=== PATIENT | female | born 1990 | race Caucasian/White ===

== ENCOUNTER 2022-11-30 01:05 | Inpatient (IN) | payer BC, MEDICAID, SELFPAY ==
[2022-11-30] VITALS (8 sets, daily range): BP systolic 94–129; BP diastolic 53–84; PULSE 80–102; RESP 15–18; TEMP 36.6; O2SAT 90–100; BMI 30.3
[2022-11-30] MEDS: Haloperidol Lactate 5 MG/ML VIAL IM (01:30)
[2022-11-30] MEDS: LORazepam 2 MG/ML VIAL IM (01:30)
[2022-11-30] MEDS: diphenhydrAMINE HCL 50 MG/ML VIAL IM (01:30)
--- NOTE | 2022-11-30 01:31 | ED.PSYCH ---
HPI - Psych General Chief Complaint: Psychiatric Symptoms Stated Complaint: Section 12 Time Seen by Provider: 11/30/22 01:21 Source: EMS Mode of arrival: EMS Limitations: altered mental status History of Present Illness HPI Narrative: Patient comes to the emergency room via EMS. Patient is on a Section 12. Patient is paranoid, has been walking in her neighborhood knocking on strangers doors, per EMS patient accused a random stranger that she was her boyfriend. Patient paranoid, states that she is under the morning possession, responding to internal stimuli. Related Data Allergies Allergy/AdvReac Type Severity Reaction Status Date / Time No Known Allergies Allergy Unverified 01/23/20 17:57 [No Known Allergies*] Review of Systems Review of Systems: Yes Unobtainable due to mental condition [facility] Past Medical History Medical History (Updated 11/30/22 @ 01:36 by Cierra Tan MD) Paranoid schizophrenia Physical Exam Vital Signs: Vital Signs: BMI result Body Mass Index 30.3 Const: Other: Appearance: Alert. Pacing around, difficult to redirect Eyes: Pupils equal, round and reactive to light. ENT: Pharynx normal. Neck: Normal inspection. Neck supple. No lymph nodes noted. No crepitus CVS: Normal heart rate and rhythm. Pulses normal. Normal S1 and S2 Respiratory: No respiratory distress. Breath sounds normal. No Wheezing. No rales Abdomen: Soft and nontender. No rigidity. No distention. Skin: Skin warm and dry. Normal skin color. Normal skin turgor. Extremities: No lower extremity edema. No Lacerations. No Rash Neuro: Oriented X 3. No motor deficit. No sensory deficit. Moving all extremities. No slurred speech. CN 2 through 12 grossly intact Psych: Anxious, difficult to redirect, pressured speech, paranoid Course Course Course Narrative: -unable to redirect the patient, patient received IM Benadryl 50 mg, Haldol 5 mg, 2 mg of lorazepam -all of patient's labs pending -care team consult pending -physician of sedation started at 01:30 Sign-out given to Dr. Jovel Medical Decision Making Differential Diagnosis Differential Diagnoses: The differential diagnosis associated with the presentation includes (Paranoid schizophrenia, alcohol intoxication, substance abuse) Admission/Observation Consideration of admission/observation: Escalation of care including admission/observation considered (Patient had to be chemically restrained, patient will be under observation until behavioral health/care team can talk to her and make a plan) Critical Care Time Critical Care Time Critical Care Time: Yes Total Critical Care Time: 30 Attestation: I have personally provided critical care time. Time includes review of lab data, radiology results, discussion with consultants, and monitoring for potential decompensation. Intervention performed as documented. Discharge Plan Discharge Clinical Impression: Paranoid schizophrenia Patient Disposition: Still a Patient
[2022-11-30 02:12] LABS: MANUAL DIFF FLAG NO
[2022-11-30 02:13] LABS: Basophils Percent Auto 0.2 % (0-2); Eosinophils Absolute Auto 0.1 X10*3/uL (0.0-0.4); Eosinophils Percent Auto 0.6 % (0-4); Hematocrit 35.4 % (37.0-47.0); Hemoglobin 11.6 g/dl (12.0-16.0); Imm Gran Abs Auto 0.03 X10*3/uL (0.00-0.03); Imm Gran Pct Auto 0.3 % (0.0-0.4); Lymphocytes Absolute Auto 2.6 X10*3/uL (1.2-4.9); Lymphocytes Percent Auto 27.9 % (20-40); Mean Corpuscular HGB Conc 32.8 g/dl (31.0-35.0); Mean Corpuscular Hemoglobin 29.7 pg (27.0-33.0); Mean Corpuscular Volume 90.5 fL (80.0-98.0); Mean Platelet Volume 9.7 fL (9.4-12.3); Monocytes Absolute Auto 0.8 X10*3/uL (0.1-1.2); Monocytes Percent Auto 8.6 % (2-11); Neutrophils Absolute Auto 5.9 x10*3/uL (2.0-8.3); Neutrophils Percent Auto 62.4 % (45-73); Platelet Count 249 X10*3/uL (160-400); Red Blood Count 3.91 X10*6/uL (4.20-5.50); White Blood Count 9.4 X10*3/uL (4.8-10.8)
[2022-11-30 02:34] LABS: Alanine Aminotransferase 12 U/L (0-31); Albumin Level 4.2 g/dL (3.5-5.0); Alkaline Phosphatase 52 U/L (39-117); Anion Gap 13 (12-20); Aspartate Amino Transferase 25 U/L (5-31); Bilirubin Direct 0.3 mg/dL (0.0-0.5); Bilirubin Total 0.9 mg/dL (0.0-1.0); Blood Urea Nitrogen 12 mg/dL (9-16); Carbon Dioxide 22 mmol/L (22-29); Chloride 106 mmol/L (96-108); Creatinine Clr Calc Pharmacy 91.1; Estimated Glomerular Filt Rate > 60; Ethanol < 10 mg/dL; Glucose Random 83 mg/dL (60-115); Potassium 3.1 mmol/L (3.3-5.1); Sodium 138 mmol/L (135-145); Total Protein 6.9 g/dL (6.5-8.0)
--- NOTE | 2022-11-30 05:11 | PC.NURSE ---
Patient at the time of arrival was paranoid, delusional, tangential, disorganized, uncooperative with changeover process, loud and disruptive, and resistive with direction. Provider ordered Ativan 2 mg IM, Haldol 5 mg IM, and Benadryl 50 mg Im administered as ordered at 0130 with support from security. Patient agreed to lab draws and resulted however unable to provide us urine sample at this time, patient had been sleeping since 0200, care consult ordered for paranoia, pending evaluation in the morning, med rec completed/pending provider's approval, VSS, behavior unpredictable, will continue to monitor.
--- NOTE | 2022-11-30 09:45 | PC.NURSE ---
Woke Pt. Obtained Urine. Enc. Breakfast. Pt is anxious to take care of things with the police . Enc pt to take her time and explained the process.
[2022-11-30 10:05] LABS: Appearance Urine Cloudy; Color Urine Yellow; Glucose Urine UA Negative (Negative); Leukocyte Esterase Urine Moderate (2+) (Negative); Nitrite Urine Negative (Negative); Specific Gravity - Urine >= 1.030 (1.005-1.025); UMIC TRIGGER UACC YES; Urine Blood Negative (Negative); Urine Ketones 15 mg/dL (Negative); Urine Protein Trace mg/dL (Neg-Trace)
[2022-11-30 10:06] LABS: UPreg QC Valid YES; Urine Pregnancy NEGATIVE (NEGATIVE)
[2022-11-30 10:07] LABS: Bacteria Urine 2+ (None Seen); RBC Urine 0-2 /HPF (0-2); Squamous Epithelial Cell Urine >20 /HPF (0-2); UACC Culture Trigger YES; WBC Urine >50 /HPF (0-5)
[2022-11-30 10:08] LABS: Amphetamine Screen Urine Not Detected (Not Detect); Barbiturates, Urine Not Detected (Not Detect); Benzodiazepines Screen Urine Not Detected (Not Detect); Cannabinoid Screen Urine Not Detected (Not Detect); Cocaine Screen Urine Not Detected (Not Detect); Fentanyl, urine Not Detected (Not Detect); Opiate Screen Urine Not Detected (Not Detect); Phencyclidine Screen Urine Not Detected (Not Detect)
[2022-11-30 12:09] LABS: COVID-19 Test Negative (Negative); IDNOW Serial# BCCEAD1C
[2022-11-30 19:31] LABS: Anion Gap 13 (12-20); Carbon Dioxide 21 mmol/L (22-29); Chloride 107 mmol/L (96-108); Potassium 4.2 mmol/L (3.3-5.1); Sodium 137 mmol/L (135-145)
--- NOTE | 2022-12-01 00:22 | PC.ADMIT ---
Patient is a 32 year old, single Swedish speaking female, admitted as a CV admission to at 2135 11/30/22 at 2135 and placed on 15 minute safety checks. Patient was evaluated by [facility] Crisis due to disorganized and delusional behavior. She was medically cleared in the [facility], and deemed in need of I[facility]. Apparently, according to the patient's father, patient has not been sleeping much, if at all, the last 7 days and not eating much. She had been talking about issues between Ruiz and Kev (delusions) and said that she was following directions from her conversations with God and she was receiving important information from God. According to [facility] the patient was distracted and trying to elope during the assessment and was responding to internal stimuli. Patient was also talking about demonic possessions and being religiously preoccupied. The [facility] indicated that she was trying to follow her hallucinations and was continuously running into the road and onto other people's property and needed to be redirected by the police. According to the patient she has not been a patient at [facility]. Patient said that she feels her mother is the one who thinks she needs to be hospitalized, but the patient said she is okay and knows the person who lives at the house where she was knocking on the front door. Patient appeared as paranoid and preoccupied, during the the admission process, and requested a 3 day notice, which she received and signed. Patient said she has no current providers and only signed releases for her insurance company and [facility]. Patient denied any SI, HI, AH or VH, but did say that sometimes things work out according to God's plan . Patient asleep, so HS meds were not given. Treatment plan and safety tool initiated.
--- NOTE | 2022-12-01 01:14 | PC.NURSE ---
pt signed a 3 day notice on Monday11/30/22. up on Monday12/05/22. witnessed by KATHRYN Moe
--- NOTE | 2022-12-01 10:10 | HO.PSYADMNOT ---
HPI Date of Service: 12/01/22 Chief Complaint: psychosis Sources of Information: patient interviewed, chart reviewed and crisis/core team assessment reviewed HPI Subjective Notes: Collins Warning, Conditional Voluntary and 3 Day Narrative: Patient is a 32-year-old female with history of bipolar disorder, several inpatient admissions over the past month who presents for disorganized, manic and paranoid behavior. Patient is perseverative on saying that she does not feel safe with her boyfriend, that he is manipulative and love bombing. Patient frequently repeats this phrase. Shorts Sifter inquired however patient remains very vague; she described love bombing saying that it is when he will give you stuff you want but then turns it against you, though no specifics. About feeling unsafe, she said that he yelled at her and uses her history of mental illness, bipolar disorder as a way to criticize her. Patient was disorganized in her thought process and had significant thought blocking making difficult for her to explain the recent course of events, however it was eventually determined that she called the police to her apartment where she lives with her boyfriend saying she was unsafe with him however this did not seem to prompt a reaction from the police. Patient said she then left her house and drove to [place] to knock on her ex-boyfriend's door but then did not feel safe there either. She then drove some more but ran at a [employer] and w/out money had to stick puller on the side of the road; police arrived and took her to the hospital. patient reports she has been sleeping very little over the past week; not eating much. She does have conversations with God but says that she is mandaen and refers to it as part of her scientologist. She otherwise denies any AH. ED note mentioned she referenced seeing people that others could not see and to senior mortgage underwriter she said she can see things behind closed doors, however on further inquiry she could not explain. 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 She is vague on whether she has been taking her medication, saying her mother was giving her things that were not real medication. Patient is amenable to restarting Abilify which she was on the past; less enthusiastic about Risperdal Past Psychiatric History: Past psychiatric admissions. thereSeem to be several in-patient admissions over the past month. Perhaps 1 this past May but then and admission to [facility] about a month ago, [facility] about 2 weeks ago and then [facility] about a week ago. 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9 [place] % (Auto) 8.6 Eos % (Auto) 0.6 Baso % (Auto) 0.2 Lymph # (Auto) 2.6 [place] # (Auto) 0.8 Eos # (Auto) 0.1 Baso # (Auto) 0.0 Abs Immat Gran (auto) 0.03 Absolute Neuts (auto) 5.9 Absolute Nucleated RBC 0.000 Nucleated RBC % (auto) 0.0 Sodium 138 Potassium 3.1 L Chloride 106 Carbon Dioxide 22 Anion Gap 13 BUN 12 Creatinine 0.75 Estim Creat Clear Calc 91.1 Estimated GFR > 60 Random Glucose 83 Calcium 9.0 Total Bilirubin 0.9 Direct Bilirubin 0.3 AST 25 ALT 12 Alkaline Phosphatase 52 Total Protein 6.9 Albumin 4.2 Urine Color Yellow Urine Appearance Cloudy Urine pH 6.0 Ur Specific [place] >= 1.030 H Urine Protein Trace Urine Glucose (UA) Negative Urine Ketones 15 Urine Blood Negative Urine Nitrite Negative Ur Leukocyte Esterase Moderate (2+) H Urine RBC 0-2 Urine WBC >50 H Ur Squamous Epith Cells >20 Urine Bacteria 2+ Hyaline Casts 3-5 Urine Test Urine Opiates Screen Urine Fentanyl Screen Ur Barbiturates Screen Ur Phencyclidine Scrn Ur Amphetamines Screen U Benzodiazepines Scrn Urine Cocaine Screen U Marijuana (THC) Screen Ethyl Alcohol < 10 COVID-19 ([facility]) COVID-19 Clin Com 11/30/22 11/30/22 11/30/22 09:51 09:51 11:47 WBC RBC Hgb Hct MCV MCH MCHC RDW Plt Count MPV Immature Gran % (Auto) Neut % (Auto) Lymph % (Auto) [place] % (Auto) Eos % (Auto) Baso % (Auto) Lymph # (Auto) [place] # (Auto) Eos # (Auto) Baso # (Auto) Abs Immat Gran (auto) Absolute Neuts (auto) Absolute Nucleated RBC Nucleated RBC % (auto) Sodium Potassium Chloride Carbon Dioxide Anion Gap BUN Creatinine Estim Creat Clear Calc Estimated GFR Random Glucose Calcium Total Bilirubin Direct Bilirubin AST ALT Alkaline Phosphatase Total Protein Albumin Urine Color Urine Appearance Urine pH Ur Specific [place] Urine Protein Urine Glucose (UA) Urine Ketones Urine Blood Urine Nitrite Ur Leukocyte Esterase Urine RBC Urine WBC Ur Squamous Epith Cells Urine Bacteria Hyaline Casts Urine Test NEGATIVE Urine Opiates Screen Not Detected Urine Fentanyl Screen Not Detected Ur Barbiturates Screen Not Detected Ur Phencyclidine Scrn Not Detected Ur Amphetamines Screen Not Detected U Benzodiazepines Scrn Not Detected Urine Cocaine Screen Not Detected U Marijuana (THC) Screen Not Detected Ethyl Alcohol COVID-19 ([facility]) Negative COVID-19 Clin Com See Note 11/30/22 18:55 WBC RBC Hgb Hct MCV MCH MCHC RDW Plt Count MPV Immature Gran % (Auto) Neut % (Auto) Lymph % (Auto) [place] % (Auto) Eos % (Auto) Baso % (Auto) Lymph # (Auto) [place] # (Auto) Eos # (Auto) Baso # (Auto) Abs Immat Gran (auto) Absolute Neuts (auto) Absolute Nucleated RBC Nucleated RBC % (auto) Sodium 137 Potassium 4.2 D Chloride 107 Carbon Dioxide 21 L Anion Gap 13 BUN Creatinine Estim Creat Clear Calc Estimated GFR Random Glucose Calcium Total Bilirubin Direct Bilirubin AST ALT Alkaline Phosphatase Total Protein Albumin Urine Color Urine Appearance Urine pH Ur Specific [place] Urine Protein Urine Glucose (UA) Urine Ketones Urine Blood Urine Nitrite Ur Leukocyte Esterase Urine RBC Urine WBC Ur Squamous Epith Cells Urine Bacteria Hyaline Casts Urine Test Urine Opiates Screen Urine Fentanyl Screen Ur Barbiturates Screen Ur Phencyclidine Scrn Ur Amphetamines Screen U Benzodiazepines Scrn Urine Cocaine Screen U Marijuana (THC) Screen Ethyl Alcohol COVID-19 ([facility]) COVID-19 Clin Com Meds/Allergies Meds Home Medications Medication Instructions Recorded Confirmed Type aripiprazole 10 mg tablet 10 mg PO DAILY 11/30/22 11/30/22 History hydroxyzine pamoate 25 mg capsule 25 mg PO BID PRN anxiety 11/30/22 11/30/22 History lorazepam 0.5 mg tablet 0.5 mg PO TID 11/30/22 11/30/22 History melatonin 3 mg tablet 6 mg PO BEDTIME 11/30/22 11/30/22 History risperidone 2 mg tablet 2 mg PO BID 11/30/22 11/30/22 History trazodone 50 mg tablet 50 mg PO BEDTIME 11/30/22 11/30/22 History valacyclovir 500 mg tablet 500 mg PO DAILY 11/30/22 11/30/22 History Allergies Allergies Allergy/AdvReac Type Severity Reaction Status Date / Time No Known Allergies Allergy Unverified 01/23/20 17:57 [No Known Allergies*] Mental Status Exam Mental Status Exam Narrative: Pt is alert and oriented; behavior is cooperative, overly friendly, hyperactive, with some disorganization; verbose; patient is not in distress; dressed in casual attire with adequate hygiene; mood is described as good and affect expansive; eye contact appropriate; Speech is moderately pressured, normal volume but discharged to prosody due to thought blocking; some psychomotor agitation present; thought process with significant thought blocking and latency; disorganized, giving answers to questions not asked; Thought content is on perseverative on her boyfriend whom she repeats is manipulating and love bombing. patient has some delusional, paranoid ideations; some grandiosity; no SI/HI. patient is significantly internally preoccupied; some references to AH; denies VH Patients insight and judgment are impaired Assessment & Plan Assessment & Plan (1) Bipolar 1 disorder: Status: Acute Code(s): F31.9 - Bipolar disorder, unspecified Plan Patient is a 32-year-old female with history of bipolar disorder, several inpatient admissions over the past month who presents for disorganized, manic and paranoid behavior. impression: patient presents as manic and disorganized in both speech and behavior. She could not decide whether she wanted to shake senior mortgage underwriter's hand, going back and forth, putting her handout than taking it away. Patient has significant thought blocking and speech latency. She has trouble answering direct questions, sometimes not even hearing the question asked due to internal preoccupation. Patient however does say she has a history of bipolar disorder and that Abilify has helped her in the past. She is willing to restart that now. She is not so sure if Risperdal is helpful or not. 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 since she is ambivalent about it will seek collateral and patient gave verbal permission to talk with -her father and social media campaign manager at [facility] -NO lithium ( documentation reports patient only has 1 kidney) Patient educated on: diagnosis and medication risk/benefits Informed Consent: understands, does not understand and further education needed Reason for continued inpatient stay Substantial Risk for: inability to function Statement Statement: I have reviewed the history and physical and performed a pertinent examination on my patient. No changes have occurred unless specified. If the History and Physical was not performed prior to admission, the Hospitalist's service will be consulted for completing the admission physical. Time Spent With Patient Time: Total time managing care of this patient today ____ minutes.
[2022-12-01] MEDS: ARIPiprazole 10 MG TABLET PO (14:29)
[2022-12-01] MEDS: Acetaminophen 325 MG TABLET 650 MG PO (19:02)
[2022-12-01] MEDS: traZODone HCL 50 MG TABLET PO (19:59)
[2022-12-01] MEDS: LORazepam 0.5 MG TABLET PO (20:00)
[2022-12-02] MEDS: ARIPiprazole 20 MG TABLET PO (08:09)
--- NOTE | 2022-12-02 09:18 | HO.PSYCHPN ---
Subjective Subjective Date of Service: 12/02/22 Reason For Visit: psychosis Subjective Notes: Section 12B Interim History: Pt in her room, smiling. She reports everything is fine. She denies SI/HI. She denies VH/AH. Per nursing, pt slept through the night. She continues to denied any psychiatric symptoms or need for treatment. No behavioral concerns. Pt taking abilify as prescribed. Decline ativan. Review of Systems Review of Systems Yes Unobtainable due to mental condition Mental Status Exam Mental Status Exam Narrative: Pt is alert and oriented; behavior is cooperative, overly friendly, hyperactive, with some disorganization; verbose; patient is not in distress; dressed in casual attire with adequate hygiene; mood is described as good and affect expansive; eye contact appropriate; Speech is moderately pressured, normal volume but discharged to prosody due to thought blocking; some psychomotor agitation present; thought process with significant thought blocking and latency; disorganized, giving answers to questions not asked; Thought content is on perseverative on her boyfriend whom she repeats is manipulating and love bombing. patient has some delusional, paranoid ideations; some grandiosity; no SI/HI. patient is significantly internally preoccupied; some references to AH; denies VH Patients insight and judgment are impaired Diagnostics Vital Signs (24Hr): BMI result Body Mass Index 30.3 Labs 11/30/22 02:06 11/30/22 18:55 Labs: Laboratory Results - last 48 hr 11/30/22 11/30/22 11/30/22 09:51 09:51 09:51 Sodium Potassium Chloride Carbon Dioxide Anion Gap Urine Color Yellow Urine Appearance Cloudy Urine pH 6.0 Ur Specific [place] >= 1.030 H Urine Protein Trace Urine Glucose (UA) Negative Urine Ketones 15 Urine Blood Negative Urine Nitrite Negative Ur Leukocyte Esterase Moderate (2+) H Urine RBC 0-2 Urine WBC >50 H Ur Squamous Epith Cells >20 Urine Bacteria 2+ Hyaline Casts 3-5 Urine Test NEGATIVE Urine Opiates Screen Not Detected Urine Fentanyl Screen Not Detected Ur Barbiturates Screen Not Detected Ur Phencyclidine Scrn Not Detected Ur Amphetamines Screen Not Detected U Benzodiazepines Scrn Not Detected Urine Cocaine Screen Not Detected U Marijuana (THC) Screen Not Detected COVID-19 ([facility]) COVID-19 Clin Com 11/30/22 11/30/22 11:47 18:55 Sodium 137 Potassium 4.2 D Chloride 107 Carbon Dioxide 21 L Anion Gap 13 Urine Color Urine Appearance Urine pH Ur Specific [place] Urine Protein Urine Glucose (UA) Urine Ketones Urine Blood Urine Nitrite Ur Leukocyte Esterase Urine RBC Urine WBC Ur Squamous Epith Cells Urine Bacteria Hyaline Casts Urine Test Urine Opiates Screen Urine Fentanyl Screen Ur Barbiturates Screen Ur Phencyclidine Scrn Ur Amphetamines Screen U Benzodiazepines Scrn Urine Cocaine Screen U Marijuana (THC) Screen COVID-19 ([facility]) Negative COVID-19 Clin Com See Note Medications Medications Current Medications Acetaminophen (Acetaminophen 325 Mg Tablet) 650 mg PO Q6H PRN PRN Reason: Headache/Pain Mild Scale (1-3) Last Admin: 12/01/22 19:02 Dose: 325 mg Al Hydroxide/Mg Hydroxide (Magnesium Hydrox/Alum Hydrox 30 Ml Oral.Susp) 30 ml PO Q6H PRN PRN Reason: Heartburn/Nausea Aripiprazole (Aripiprazole 20 Mg Tablet) 20 mg PO DAILY [facility] Last Admin: 12/02/22 08:09 Dose: 20 mg Hydroxyzine HCl (Hydroxyzine Hcl 25 Mg Tablet) 25 mg PO Q6H PRN PRN Reason: Anxiety Lorazepam (Lorazepam 0.5 Mg Tablet) 0.5 mg PO TID [facility] Last Admin: 12/02/22 08:12 Dose: Not Given Magnesium Hydroxide (Milk Of Magnesia 30 Ml Oral.Susp) 30 ml PO DAILY PRN PRN Reason: Constipation Risperidone (Risperidone 2 Mg Tablet) 2 mg PO BID PRN PRN Reason: agitation Trazodone HCl (Trazodone Hcl 50 Mg Tablet) 50 mg PO BEDTIME PRN PRN Reason: Insomnia Trazodone HCl (Trazodone Hcl 50 Mg Tablet) 50 mg PO BEDTIME [facility] Last Admin: 12/01/22 19:59 Dose: 50 mg Valacyclovir HCl (Valacyclovir Hcl 500 Mg Tablet) 500 mg PO DAILY [facility] Last Admin: 12/02/22 08:12 Dose: Not Given Allergies Allergies Allergy/AdvReac Type Severity Reaction Status Date / Time No Known Allergies Allergy Unverified 01/23/20 17:57 [No Known Allergies*] Assessment & Plan Assessment & Plan (1) Bipolar 1 disorder: Status: Acute Code(s): F31.9 - Bipolar disorder, unspecified Plan Patient is a 32-year-old female with history of bipolar disorder, several inpatient admissions over the past month who presents for disorganized, manic and paranoid behavior. impression: patient presents as manic and disorganized in both speech and behavior. She could not decide whether she wanted to shake marketing copywriter's hand, going back and forth, putting her handout than taking it away. Patient has significant thought blocking and speech latency. She has trouble answering direct questions, sometimes not even hearing the question asked due to internal preoccupation. Patient however does say she has a history of bipolar disorder and that Abilify has helped her in the past. She is willing to restart that now. She is not so sure if Risperdal is helpful or not. 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 since she is ambivalent about it will seek collateral and patient gave verbal permission to talk with -her father and outreach and education social worker at [facility] -NO lithium ( documentation reports patient only has 1 kidney) 12/02 continue tx. Reason for continued inpatient stay Substantial Risk for: inability to function Time Spent With Patient Time: Total time managing care of this patient today ____ minutes.
[2022-12-02] MEDS: traZODone HCL 50 MG TABLET PO (20:42)
[2022-12-02] MEDS: LORazepam 0.5 MG TABLET PO (20:42)
[2022-12-03] MEDS: ARIPiprazole 20 MG TABLET PO (08:01)
--- NOTE | 2022-12-03 11:53 | P.PNPSI_ITS ---
Subjective Subjective Date of Service: 12/03/22 Reason For Visit: psychosis Subjective Notes: Conditional Voluntary and 3 Day Healthcare Proxy: No Guardianship: No Medical Problems Affecting Mental Status: No Interim History: Patient was seen and discussed in rounds today. Records and plans were reviewed. She continues to be very disorganized, intrusive, repetitive. She is showing signs of hypomania. She also has been religiously preoccupied. No complaints. Eating and sleeping moderately. No dangerous behaviors. No SI. No changes were made today Review of Systems Review of Systems Yes Unobtainable due to mental status Mental Status Exam Mental Status Exam Narrative: In today's visit she is alert, oriented and overly interactive. Speech is pressured. Asking repetitive questions. She has been intrusive. She is hyperactive, pacing. No overt signs of psychosis or delusions. She has been religiously preoccupied. No SI. Cognitively she has disorganized thought processes. Judgment is marginally intact Diagnostics Vital Signs (24Hr): BMI result Body Mass Index 30.3 Labs 11/30/22 02:06 11/30/22 18:55 Medications Medications Current Medications Acetaminophen (Acetaminophen 325 Mg Tablet) 650 mg PO Q6H PRN PRN Reason: Headache/Pain Mild Scale (1-3) Last Admin: 12/01/22 19:02 Dose: 325 mg Al Hydroxide/Mg Hydroxide (Magnesium Hydrox/Alum Hydrox 30 Ml Oral.Susp) 30 ml PO Q6H PRN PRN Reason: Heartburn/Nausea Aripiprazole (Aripiprazole 20 Mg Tablet) 20 mg PO DAILY ON [facility] OF [facility] Last Admin: 12/03/22 08:01 Dose: 20 mg Hydroxyzine HCl (Hydroxyzine Hcl 25 Mg Tablet) 25 mg PO Q6H PRN PRN Reason: Anxiety Lorazepam (Lorazepam 0.5 Mg Tablet) 0.5 mg PO TID ON LICENSE OF [facility] Last Admin: 12/03/22 08:05 Dose: Not Given Magnesium Hydroxide (Milk Of Magnesia 30 Ml Oral.Susp) 30 ml PO DAILY PRN PRN Reason: Constipation Risperidone (Risperidone 2 Mg Tablet) 2 mg PO BID PRN PRN Reason: agitation Trazodone HCl (Trazodone Hcl 50 Mg Tablet) 50 mg PO BEDTIME PRN PRN Reason: Insomnia Trazodone HCl (Trazodone Hcl 50 Mg Tablet) 50 mg PO BEDTIME ON LICENSE OF [facility] Last Admin: 07/28/23 20:42 Dose: 50 mg Valacyclovir HCl (Valacyclovir Hcl 500 Mg Tablet) 500 mg PO DAILY [facility] Last Admin: 12/03/22 08:05 Dose: Not Given Allergies Allergies Allergy/AdvReac Type Severity Reaction Status Date / Time No Known Allergies Allergy Unverified 01/23/20 17:57 [No Known Allergies*] Assessment & Plan Assessment & Plan (1) Bipolar 1 disorder: Status: Acute Code(s): F31.9 - Bipolar disorder, unspecified Plan Patient is a 32-year-old female with history of bipolar disorder, several inpatient admissions over the past month who presents for disorganized, manic and paranoid behavior. impression: patient presents as manic and disorganized in both speech and behavior. She co uld not decide whether she wanted to shake senior technical writer's hand, going back and forth, putting her handout than taking it away. Patient has significant thought blocking and speech latency. She has trouble answering direct questions, sometimes not even hearing the question asked due to internal preoccupation. Patient however does say she has a history of bipolar disorder and that Abilify has helped her in the past. She is willing to restart that now. She is not so sure if Risperdal is helpful or not. 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 since she is ambivalent about it will seek collateral and patient gave verbal permission to talk with -her father and bilingual social worker at [facility] -NO lithium ( documentation reports patient only has 1 kidney) 12/02 continue tx. 12/03 continue current plans and regimen Reason for continued inpatient stay Substantial Risk for: med/psych decompensation Time Spent With Patient Time: Total time managing care of this patient today ____ minutes.
[2022-12-03 18:00] VITALS: RESP 16
[2022-12-03] MEDS: LORazepam 0.5 MG TABLET PO (20:18)
[2022-12-04] MEDS: ARIPiprazole 20 MG TABLET PO (08:35)
--- NOTE | 2022-12-04 10:44 | P.PNPSI_ITS ---
Subjective Subjective Date of Service: 12/04/22 Reason For Visit: psychosis Subjective Notes: Conditional Voluntary and 3 Day Healthcare Proxy: No Guardianship: No Medical Problems Affecting Mental Status: No Interim History: Patient was seen and discussed in rounds today. Records and plans were reviewed. She continues to be a little less disorganized. She has lashes pressured in her speech. She continues to be disorganized and needing a lot of redirection. Some paranoia is still present. She has less hyperverbal. No complaints. No side effects. No changes were made Medication Compliance: Yes Side effects from medications: No Review of Systems Review of Systems Yes all other systems are reviewed and are negative Mental Status Exam Mental Status Exam Narrative: In today's visit she is alert, oriented and overly interactive. Speech is pressured. Asking repetitive questions. She has been intrusive. She is hyperactive, pacing. No overt signs of psychosis or delusions. She has been religiously preoccupied. No SI. Cognitively she has disorganized thought processes. Judgment is marginally intact Diagnostics Vital Signs (24Hr): Vital Signs - 24 hr 12/03/22 18:00 Respiratory Rate 16 BMI result Body Mass Index 30.3 Labs 11/30/22 02:06 11/30/22 18:55 Medications Medications Current Medications Acetaminophen (Acetaminophen 325 Mg Tablet) 650 mg PO Q6H PRN PRN Reason: Headache/Pain Mild Scale (1-3) Last Admin: 12/01/22 19:02 Dose: 325 mg Al Hydroxide/Mg Hydroxide (Magnesium Hydrox/Alum Hydrox 30 Ml Oral.Susp) 30 ml PO Q6H PRN PRN Reason: Heartburn/Nausea Aripiprazole (Aripiprazole 20 Mg Tablet) 20 mg PO DAILY [facility] Last Admin: 12/04/22 08:35 Dose: 20 mg Hydroxyzine HCl (Hydroxyzine Hcl 25 Mg Tablet) 25 mg PO Q6H PRN PRN Reason: Anxiety Lorazepam (Lorazepam 0.5 Mg Tablet) 0.5 mg PO TID [facility] Last Admin: 12/04/22 09:10 Dose: Not Given Magnesium Hydroxide (Milk Of Magnesia 30 Ml Oral.Susp) 30 ml PO DAILY PRN PRN Reason: Constipation Risperidone (Risperidone 2 Mg Tablet) 2 mg PO BID PRN PRN Reason: agitation Trazodone HCl (Trazodone Hcl 50 Mg Tablet) 50 mg PO BEDTIME PRN PRN Reason: Insomnia Trazodone HCl (Trazodone Hcl 50 Mg Tablet) 50 mg PO BEDTIME [facility] Last Admin: 12/03/22 20:21 Dose: Not Given Valacyclovir HCl (Valacyclovir Hcl 500 Mg Tablet) 500 mg PO DAILY [facility] Last Admin: 12/04/22 09:10 Dose: Not Given Allergies Allergies Allergy/AdvReac Type Severity Reaction Status Date / Time No Known Allergies Allergy Unverified 01/23/20 17:57 [No Known Allergies*] Assessment & Plan Assessment & Plan (1) Bipolar 1 disorder: Status: Acute Code(s): F31.9 - Bipolar disorder, unspecified Plan Patient is a 32-year-old female with history of bipolar disorder, several inpatient admissions over the past month who presents for disorganized, manic and paranoid behavior. impression: patient presents as manic and disorganized in both speech and behavior. She could not decide whether she wanted to shake advertising copywriter's hand, going back and forth, putting her handout than taking it away. Patient has significant thought blocking and speech latency. She has trouble answering direct questions, sometimes not even hearing the question asked due to internal preoccupation. Patient however does say she has a history of bipolar disorder and that Abilify has helped her in the past. She is willing to restart that now. She is not so sure if Risperdal is helpful or not. 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 since she is ambivalent about it will seek collateral and patient gave verbal permission to talk with -her father and social sciences lecturer at [facility] -NO lithium ( documentation reports patient only has 1 kidney) 12/02 continue tx. 12/03 continue current plans and regimen 12/04 continue current regimen and plans Reason for continued inpatient stay Substantial Risk for: med/psych decompensation Time Spent With Patient Time: Total time managing care of this patient today ____ minutes.
[2022-12-04 18:00] VITALS: RESP 16
[2022-12-04] MEDS: LORazepam 0.5 MG TABLET PO (20:36)
[2022-12-04] MEDS: traZODone HCL 50 MG TABLET PO (21:24)
[2022-12-05] MEDS: ARIPiprazole 20 MG TABLET PO (09:13)
--- NOTE | 2022-12-05 10:32 | HO.PSYCHPN ---
Subjective Subjective Date of Service: 12/05/22 Reason For Visit: psychosis Interim History: Met with patient; discussed with team; reviewed weekend notes Patient remains manic intrusive with peers; over the weekend she needed to be removed and excluded from the kitchen as she was being so intrusive, peers were getting agitated and threatening assault. Patient accepted redirection. Patient initially wanted to discharge today and resisted casualty underwriter's explanation of her current manic behaviors; refuted that she was disorganized in her thinking despite it being pointed out that she has asked casualty underwriter the same question 10 times in a row despite his repeated consistent answers; she dismisses that the past 3 admissions in the past month and a half are due to bipolar disorder. However, patient had a moment of insight and later on in the day approached casualty underwriter and said that she was having a hard time accepting that she actually does have bipolar disorder but she is learning to accept it and is willing to stay longer; patient retracted her 3 day notice. She also was willing to increase Abilify to 30 mg daily and get the long-acting Maintena shot. Patient also has been talking with her boyfriend and said they are reconciling which to casualty underwriter indicates decrease in paranoid, delusional thinking. Mental Status Exam Mental Status Exam Narrative: Pt is alert and oriented; behavior is cooperative, overly friendly, hyperactive, intrusive, and disorganization; verbose; patient is not in distress; dressed in casual attire with adequate hygiene; mood is described as good and affect expansive; eye contact appropriate; Speech is moderately pressured, normal volume; thought blocking much less and near normal prosody; some psychomotor agitation present; thought process goal oriented, but disorganized and will ask the same question many times; Thought content is on perseverative on discharge, on treatment plan; but seems that delusional, paranoid ideations are abating; no SI/HI. Some evidence of being internally preoccupied, but last; some references to AH; denies VH Patients insight and judgment are impaired but improving Diagnostics Vital Signs (24Hr): Vital Signs - 24 hr 12/04/22 18:00 Respiratory Rate 16 BMI result Body Mass Index 30.3 Labs 11/30/22 02:06 11/30/22 18:55 Medications Medications Current Medications Acetaminophen (Acetaminophen 325 Mg Tablet) 650 mg PO Q6H PRN PRN Reason: Headache/Pain Mild Scale (1-3) Last Admin: 12/01/22 19:02 Dose: 325 mg Al Hydroxide/Mg Hydroxide (Magnesium Hydrox/Alum Hydrox 30 Ml Oral.Susp) 30 ml PO Q6H PRN PRN Reason: Heartburn/Nausea Aripiprazole (Aripiprazole 20 Mg Tablet) 20 mg PO DAILY [facility] Last Admin: 12/05/22 09:13 Dose: 20 mg Hydroxyzine HCl (Hydroxyzine Hcl 25 Mg Tablet) 25 mg PO Q6H PRN PRN Reason: Anxiety Lorazepam (Lorazepam 0.5 Mg Tablet) 0.5 mg PO TID [facility] Last Admin: 12/05/22 09:53 Dose: Not Given Magnesium Hydroxide (Milk Of Magnesia 30 Ml Oral.Susp) 30 ml PO DAILY PRN PRN Reason: Constipation Risperidone (Risperidone 2 Mg Tablet) 2 mg PO BID PRN PRN Reason: agitation Trazodone HCl (Trazodone Hcl 50 Mg Tablet) 50 mg PO BEDTIME PRN PRN Reason: Insomnia Trazodone HCl (Trazodone Hcl 50 Mg Tablet) 50 mg PO BEDTIME [facility] Last Admin: 12/04/22 21:24 Dose: 50 mg Valacyclovir HCl (Valacyclovir Hcl 500 Mg Tablet) 500 mg PO DAILY [facility] Last Admin: 12/05/22 09:53 Dose: Not Given Allergies Allergies Allergy/AdvReac Type Severity Reaction Status Date / Time No Known Allergies Allergy Unverified 01/23/20 17:57 [No Known Allergies*] Assessment & Plan Assessment & Plan (1) Bipolar 1 disorder: Status: Acute Code(s): F31.9 - Bipolar disorder, unspecified Plan Patient is a 32-year-old female with history of bipolar disorder, several inpatient admissions over the past month who presents for disorganized, manic and paranoid behavior. impression: patient presents as manic and disorganized in both speech and behavior. She could not decide whether she wanted to shake casualty underwriter's hand, going back and forth, putting her handout than taking it away. Patient has significant thought blocking and speech latency. She has trouble answering direct questions, sometimes not even hearing the question asked due to internal preoccupation. Patient however does say she has a history of bipolar disorder and that Abilify has helped her in the past. She is willing to restart that now. She is not so sure if Risperdal is helpful or not. 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 Patient accepted redirection. Patient initially wanted to discharge today and resisted casualty underwriter's explanation of her current manic behaviors; refuted that she was disorganized in her thinking despite it being pointed out that she has asked casualty underwriter the same question 10 times in a row despite his repeated consistent answers; she dismisses that the past 3 admissions in the past month and a half are due to bipolar disorder. However, patient had a moment of insight and later on in the day approached casualty underwriter and said that she was having a hard time accepting that she actually does have bipolar disorder but she is learning to accept it and is willing to stay longer; patient retracted her 3 day notice. She also was willing to increase Abilify to 30 mg daily and get the long-acting Maintena shot. Patient also has been talking with her boyfriend and said they are reconciling which to casualty underwriter indicates decrease in paranoid, delusional thinking. -thought blocking and speech latency mostly cleared up Plan: CV (retracted 3) q15min Increase to Abilify 30 mg Administer Abilify Maintena 400 mg IM -NO lithium ( documentation reports patient only has 1 kidney) Patient educated on: diagnosis and medication risk/benefits Informed Consent: understands, does not understand and further education needed Reason for continued inpatient stay Substantial Risk for: rapid decompensation and med/psych decompensation Time Spent With Patient Time: Total time managing care of this patient today ____ minutes.
--- NOTE | 2022-12-05 11:32 | PC.NURSE ---
Late entry; Yesterday morning, December 04, Patient had to be removed from the kitchen and kept out due to intrusive behavior. At 15:30, Patient had to be escorted away from phone area of the lobby and told several times to keep away from other patients due to intrusive behaviors and risk of injury from other patients that were becoming very agitated due to her intrusiveness.
[2022-12-05] MEDS: LORazepam 0.5 MG TABLET PO (14:24)
[2022-12-05] MEDS: ARIPiprazole ER 400 MG SUSER.SYR IM (17:23)
[2022-12-05] MEDS: traZODone HCL 50 MG TABLET PO (21:39)
[2022-12-05] MEDS: hydrOXYzine HCL 25 MG TABLET PO (21:39)
[2022-12-06] MEDS: ARIPiprazole 30 MG TABLET PO (12:30)
--- NOTE | 2022-12-06 18:28 | HO.PSYCHPN ---
Subjective Subjective Date of Service: 12/06/22 Reason For Visit: psychosis Interim History: Met with patient; discussed with team; father eventually present on the unit and assembly instructions writer discussed plan with him and his daughter at patient's request Patient remains manic but less intrusive and not agitating peers as much. Still very focused on discharge and treatment plan and asks the same questions over and over despite the answers being simple. Patient initially thought she did not need to continue Abilify p.o. but upon explanation agreed to do so and at the higher dose of 30 mg. Patient signed another 3 day notice and would very much like to leave on Monday however she says she is willing to stay longer if need be. She is ambivalent about where she will go live, sometimes same with her parents other times wanting to go back and live in her apartment with her boyfriend. She is as she has made up with her boyfriend but she does not trust him completely yet... Patient sleeping at night Mental Status Exam Mental Status Exam Narrative: Pt is alert and oriented; behavior is cooperative, overly friendly, hyperactive, intrusive, and disorganization; verbose; patient is not in distress; dressed in casual attire with adequate hygiene; mood is described as good and affect expansive; eye contact appropriate; Speech is moderately pressured, normal volume; thought blocking much less and near normal prosody; some psychomotor agitation present; thought process goal oriented, but disorganized and will ask the same question many times; Thought content is on perseverative on discharge, on treatment plan; but seems that delusional, paranoid ideations are abating; no SI/HI. Some evidence of being internally preoccupied, but last; some references to AH; denies VH Patients insight and judgment are impaired but improving Diagnostics Vital Signs (24Hr): BMI result Body Mass Index 30.3 Labs 11/30/22 02:06 11/30/22 18:55 Medications Medications Current Medications Acetaminophen (Acetaminophen 325 Mg Tablet) 650 mg PO Q6H PRN PRN Reason: Headache/Pain Mild Scale (1-3) Last Admin: 12/01/22 19:02 Dose: 325 mg Al Hydroxide/Mg Hydroxide (Magnesium Hydrox/Alum Hydrox 30 Ml Oral.Susp) 30 ml PO Q6H PRN PRN Reason: Heartburn/Nausea Aripiprazole (Aripiprazole 30 Mg Tablet) 30 mg PO DAILY [facility] Last Admin: 12/06/22 12:30 Dose: 30 mg Hydroxyzine HCl (Hydroxyzine Hcl 25 Mg Tablet) 25 mg PO Q6H PRN PRN Reason: Anxiety Last Admin: 12/05/22 21:39 Dose: 25 mg Magnesium Hydroxide (Milk Of Magnesia 30 Ml Oral.Susp) 30 ml PO DAILY PRN PRN Reason: Constipation Olanzapine (Olanzapine 5 Mg Tablet) 5 mg PO Q4H PRN PRN Reason: agitation Trazodone HCl (Trazodone Hcl 50 Mg Tablet) 50 mg PO BEDTIME PRN PRN Reason: Insomnia Trazodone HCl (Trazodone Hcl 50 Mg Tablet) 50 mg PO BEDTIME [facility] Last Admin: 12/05/22 21:39 Dose: 50 mg Valacyclovir HCl (Valacyclovir Hcl 500 Mg Tablet) 500 mg PO DAILY [facility] Last Admin: 12/06/22 08:59 Dose: Not Given Allergies Allergies Allergy/AdvReac Type Severity Reaction Status Date / Time No Known Allergies Allergy Unverified 01/23/20 17:57 [No Known Allergies*] Assessment & Plan Assessment & Plan (1) Bipolar 1 disorder: Status: Acute Code(s): F31.9 - Bipolar disorder, unspecified Plan Patient is a 32-year-old female with history of bipolar disorder, several inpatient admissions over the past month who presents for disorganized, manic and paranoid behavior. impression: patient presents as manic and disorganized in both speech and behavior. She could not decide whether she wanted to shake assembly instructions writer's hand, going back and forth, putting her handout than taking it away. Patient has significant thought blocking and speech latency. She has trouble answering direct questions, sometimes not even hearing the question asked due to internal preoccupation. Patient however does say she has a history of bipolar disorder and that Abilify has helped her in the past. She is willing to restart that now. She is not so sure if Risperdal is helpful or not. 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 Patient accepted redirection. Patient initially wanted to discharge today and resisted assembly instructions writer's explanation of her current manic behaviors; refuted that she was disorganized in her thinking despite it being pointed out that she has asked assembly instructions writer the same question 10 times in a row despite his repeated consistent answers; she dismisses that the past 3 admissions in the past month and a half are due to bipolar disorder. However, patient had a moment of insight and later on in the day approached assembly instructions writer and said that she was having a hard time accepting that she actually does have bipolar disorder but she is learning to accept it and is willing to stay longer; patient retracted her 3 day notice. She also was willing to increase Abilify to 30 mg daily and get the long-acting Maintena shot. Patient also has been talking with her boyfriend and said they are reconciling which to assembly instructions writer indicates decrease in paranoid, delusional thinking. -thought blocking and speech latency mostly cleared up 12/06 same presentation, manic but with improved insight and judgment; patient wants to discharge on Monday when her 3 day notice is due. Patient has been improving and is now on long-acting injectable and agrees to continue with this treatment plan, very intensely wanted to know how she will get her next shot. Registered Client Associate agrees it is preferable for patient to remain on the unit this week so as to monitor her progress and also better insure that she takes Abilify p.o. which is necessary to overlap 1st dose of Abilify Maintena. However, If patient continues on this trajectory, she is unlikely to meet criteria for involuntary commitment and her request for discharge will be honored. -patient has supportive family and supportive boyfriend; outpatient providers being set up including possible VNA Plan: Three day notice q15min Increase to Abilify 30 mg Administer Abilify Maintena 400 mg IM -NO lithium ( documentation reports patient only has 1 kidney) Patient educated on: diagnosis and medication risk/benefits Informed Consent: understands Reason for continued inpatient stay Substantial Risk for: rapid decompensation and med/psych decompensation Time Spent With Patient Time: Total time managing care of this patient today ____ minutes.
[2022-12-06] MEDS: traZODone HCL 50 MG TABLET PO (20:20)
[2022-12-06] MEDS: LORazepam 0.5 MG TABLET PO (23:30)
--- NOTE | 2022-12-07 10:10 | P.PNPSI_ITS ---
Subjective Subjective Date of Service: 12/07/22 Reason For Visit: psychosis Interim History: met with patient; discussed with team Patient reports she is doing much better today and in fact she is with significantly improved behavior and speech. Patient says again that she is accepting that she has bipolar disorder and feels much better overall especially after getting the long-acting injectable. Patient reported having a good visit with her father and that afterwards a good visit with her boyfriend; the two have fully reconciled and she no longer has any paranoid concerns at all. She also remembers having speech latency when she was 1st admitted and was relieved to know that that was a part of bipolar disorder. Patient asked and internal communications writer printed out information regarding bipolar disorder for which she was grateful. Patient agreed to retract her 3 day notice; internal communications writer agreed to continue with discharge planning for this Monday. Mental Status Exam Mental Status Exam Narrative: Pt is alert and oriented; behavior is cooperative, calm and with much improved organization; no longer intrusive; patient is not in distress; dressed in casual attire with adequate hygiene; mood is described as good and affect congruent, bright, calm; eye contact appropriate; Speech is normal rate, volume and prosody; no thought blocking/no speech latency; no psychomotor agitation; thought process goal oriented, logical and linear; she still may ask the same question twice but catches herself doing so now; Thought content is on accepting her diagnosis of bipolar disorder, treatment and post discharge plans; no delusional or paranoid thought content; no SI/HI. Does not appear to be internally preoccupied; no AVH Patients insight and judgment are significantly improved and getting close to baseline Diagnostics Vital Signs (24Hr): BMI result Body Mass Index 30.3 Labs 11/30/22 02:06 11/30/22 18:55 Medications Medications Current Medications Acetaminophen (Acetaminophen 325 Mg Tablet) 650 mg PO Q6H PRN PRN Reason: Headache/Pain Mild Scale (1-3) Last Admin: 12/01/22 19:02 Dose: 325 mg Al Hydroxide/Mg Hydroxide (Magnesium Hydrox/Alum Hydrox 30 Ml Oral.Susp) 30 ml PO Q6H PRN PRN Reason: Heartburn/Nausea Aripiprazole (Aripiprazole 30 Mg Tablet) 30 mg PO DAILY MONIE Last Admin: 12/06/22 12:30 Dose: 30 mg Clonidine HCl (Clonidine Hcl 0.1 Mg Tablet) 0.1 mg PO Q4H PRN; Protocol PRN Reason: anxiety Hydroxyzine HCl (Hydroxyzine Hcl 50 Mg Tablet) 50 mg PO Q6H PRN PRN Reason: Anxiety Lorazepam (Lorazepam 0.5 Mg Tablet) 0.5 mg PO DAILY PRN PRN Reason: Anxiety Last Admin: 12/06/22 23:30 Dose: 0.5 mg Magnesium Hydroxide (Milk Of Magnesia 30 Ml Oral.Susp) 30 ml PO DAILY PRN PRN Reason: Constipation Olanzapine (Olanzapine 5 Mg Tablet) 5 mg PO Q4H PRN PRN Reason: agitation Trazodone HCl (Trazodone Hcl 50 Mg Tablet) 50 mg PO BEDTIME PRN PRN Reason: Insomnia Trazodone HCl (Trazodone Hcl 50 Mg Tablet) 50 mg PO BEDTIME MONIE Last Admin: 12/06/22 20:20 Dose: 50 mg Valacyclovir HCl (Valacyclovir Hcl 500 Mg Tablet) 500 mg PO DAILY MONIE Last Admin: 12/06/22 08:59 Dose: Not Given Allergies Allergies Allergy/AdvReac Type Severity Reaction Status Date / Time No Known Allergies Allergy Unverified 01/23/20 17:57 [No Known Allergies*] Assessment & Plan Assessment & Plan (1) Bipolar 1 disorder: Status: Acute Code(s): F31.9 - Bipolar disorder, unspecified Plan Patient is a 32-year-old female with history of bipolar disorder, several inpatient admissions over the past month who presents for disorganized, manic and paranoid behavior. impression: patient presents as manic and disorganized in both speech and behavior. She could not decide whether she wanted to shake internal communications writer's hand, going back and forth, putting her handout than taking it away. Patient has significant thought blocking and speech latency. She has trouble answering direct questions, sometimes not even hearing the question asked due to internal preoccupation. Patient however does say she has a history of bipolar disorder and that Abilify has helped her in the past. She is willing to restart that now. She is not so sure if Risperdal is helpful or not. 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 Patient accepted redirection. Patient initially wanted to discharge today and resisted internal communications writer's explanation of her current manic behaviors; refuted that she was disorganized in her thinking despite it being pointed out that she has asked internal communications writer the same question 10 ti mes in a row despite his repeated consistent answers; she dismisses that the past 3 admissions in the past month and a half are due to bipolar disorder. However, patient had a moment of insight and later on in the day approached internal communications writer and said that she was having a hard time accepting that she actually does have bipolar disorder but she is learning to accept it and is willing to stay longer; patient retracted her 3 day notice. She also was willing to increase Abilify to 30 mg daily and get the long-acting Maintena shot. Patient also has been talking with her boyfriend and said they are reconciling which to internal communications writer indicates decrease in paranoid, delusional thinking. -thought blocking and speech latency mostly cleared up 12/06 same presentation, manic but with improved insight and judgment; patient wants to discharge on Monday when her 3 day notice is due. Patient has been improving and is now on long-acting injectable and agrees to continue with this treatment plan, very intensely wanted to know how she will get her next shot. Farmworkers agrees it is preferable for patient to remain on the unit this week so as to monitor her progress and also better insure that she takes Abilify p.o. which is necessary to overlap 1st dose of Abilify Maintena. However, If patient continues on this trajectory, she is unlikely to meet criteria for involuntary commitment and her request for discharge will be honored. -patient has supportive family and supportive boyfriend; outpatient providers be ing set up including possible VNA atient reports she is doing much better today and in fact she is with significantly improved behavior and speech. Patient says again that she is accepting that she has bipolar disorder and feels much better overall especially after getting the long-acting injectable. Patient reported having a good visit with her father and that afterwards a good visit with her boyfriend; the two have fully reconciled and she no longer has any paranoid concerns at all. She also remembers having speech latency when she was 1st admitted and was relieved to know that that was a part of bipolar disorder. Patient asked and internal communications writer printed out information regarding bipolar disorder for which she was grateful. Patient agreed to retract her 3 day notice; patient does not rise to the level of involuntary commitment and she is not in imminent risk for harm to self or others. Farmworkers agrees to continue with discharge planning for this Monday. Discussed aftercare and patient's current primary residence is here [place] with her parents which is where she will continue with outpatient treatment Plan: CV q15min Plan to discharge Saturday 12/09 Continue Abilify 30 mg Administer Abilify Maintena 400 mg IM -NO lithium ( documentation reports patient only has 1 kidney) Patient educated on: diagnosis and medication risk/benefits Informed Consent: understands Reason for continued inpatient stay Substantial Risk for: stable for discharge Time Spent With Patient Time: Total time managing care of this patient today ____ minutes.
[2022-12-07] MEDS: ARIPiprazole 30 MG TABLET PO (10:30)
[2022-12-07] MEDS: traZODone HCL 50 MG TABLET PO (21:24)
[2022-12-07] MEDS: hydrOXYzine HCL 50 MG TABLET PO (21:24)
[2022-12-08 07:00] VITALS: BMI 27.3
[2022-12-08] MEDS: ARIPiprazole 30 MG TABLET PO (09:23)
--- NOTE | 2022-12-08 11:34 | PC.NURSE ---
Pt refused valcyclovir this AM as well as vitals
--- NOTE | 2022-12-08 16:33 | P.PNPSI_ITS ---
Subjective Subjective Date of Service: 12/08/22 Reason For Visit: psychosis Subjective Notes: Conditional Voluntary Interim History: Pt pleasant on approach. She reports she feels much better, less irritable, better relationship with my family. She denies SI/HI. No overt delusional content. taking medications, denies SI. Loooking forward to be dc tomorrow. Medication Compliance: Yes Review of Systems Review of Systems Yes all other systems are reviewed and are negative, Unobtainable due to mental condition and Unobtainable due to mental status Mental Status Exam Mental Status Exam Narrative: Pt is alert and oriented; behavior is cooperative, calm and with much improved organization; no longer intrusive; patient is not in distress; dressed in casual attire with adequate hygiene; mood is described as good and affect congruent, bright, calm; eye contact appropriate; Speech is normal rate, volume and prosody; no thought blocking/no speech latency; no psychomotor agitation; thought process goal oriented, logical and linear; she still may ask the same question twice but catches herself doing so now; Thought content is on accepting her diagnosis of bipolar disorder, treatment and post discharge plans; no delusional or paranoid thought content; no SI/HI. Does not appear to be internally preoccupied; no AVH Patients insight and judgment are significantly improved and getting close to baseline Diagnostics Vital Signs (24Hr): BMI result Body Mass Index 27.3 Labs 11/30/22 02:06 11/30/22 18:55 Medications Medications Current Medications Acetaminophen (Acetaminophen 325 Mg Tablet) 650 mg PO Q6H PRN PRN Reason: Headache/Pain Mild Scale (1-3) Last Admin: 12/01/22 19:02 Dose: 325 mg Al Hydroxide/Mg Hydroxide (Magnesium Hydrox/Alum Hydrox 30 Ml Oral.Susp) 30 ml PO Q6H PRN PRN Reason: Heartburn/Nausea Aripiprazole (Aripiprazole 30 Mg Tablet) 30 mg PO DAILY MONIE Last Admin: 12/08/22 09:23 Dose: 30 mg Clonidine HCl (Clonidine Hcl 0.1 Mg Tablet) 0.1 mg PO Q4H PRN; Protocol PRN Reason: anxiety Hydroxyzine HCl (Hydroxyzine Hcl 50 Mg Tablet) 50 mg PO Q6H PRN PRN Reason: Anxiety Last Admin: 12/07/22 21:24 Dose: 50 mg Lorazepam (Lorazepam 0.5 Mg Tablet) 0.5 mg PO DAILY PRN PRN Reason: Anxiety Last Admin: 12/06/22 23:30 Dose: 0.5 mg Magnesium Hydroxide (Milk Of Magnesia 30 Ml Oral.Susp) 30 ml PO DAILY PRN PRN Reason: Constipation Olanzapine (Olanzapine 5 Mg Tablet) 5 mg PO Q4H PRN PRN Reason: agitation Trazodone HCl (Trazodone Hcl 50 Mg Tablet) 50 mg PO BEDTIME PRN PRN Reason: Insomnia Trazodone HCl (Trazodone Hcl 50 Mg Tablet) 50 mg PO BEDTIME MONIE Last Admin: 12/07/22 21:24 Dose: 50 mg Valacyclovir HCl (Valacyclovir Hcl 500 Mg Tablet) 500 mg PO DAILY MONIE Last Admin: 12/08/22 09:36 Dose: Not Given Allergies Allergies Allergy/AdvReac Type Severity Reaction Status Date / Time No Known Allergies Allergy Unverified 01/23/20 17:57 [No Known Allergies*] Assessment & Plan Assessment & Plan (1) Bipolar 1 disorder: Status: Acute Code(s): F31.9 - Bipolar disorder, unspecified Plan Patient is a 32-year-old female with history of bipolar disorder, several inpatient admissions over the past month who presents for disorganized, manic and paranoid behavior. impression: patient presents as manic and disorganized in both speech and behavior. She could not decide whether she wanted to shake jingle writer's hand, going back and forth, putting her handout than taking it away. Patient has significant thought blocking and speech latency. She has trouble answering direct questions, sometimes not even hearing the question asked due to internal preoccupation. Patient however does say she has a history of bipolar disorder and that Abilify has helped her in the past. She is willing to restart that now. She is not so sure if Risperdal is helpful or not. 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 Patient accepted redirection. Patient initially wanted to discharge today and resisted jingle writer's explanation of her current manic behaviors; refuted that she was disorganized in her thinking despite it being pointed out that she has asked jingle writer the same question 10 times in a row despite his repeated consistent answers; she dismisses that the past 3 admissions in the past month and a half are due to bipolar disorder. However, patient had a moment of insight and later on in the day approached jingle writer and said that she was having a hard time accepting that she actually does have bipolar disorder but she is learning to accept it and is willing to stay longer; patient retracted her 3 day notice. She also was willing to increase Abilify to 30 mg daily and get the long-acting Maintena shot. Patient also has been talking with her boyfriend and said they are reconciling which to jingle writer indicates decrease in paranoid, delusional thinking. -thought blocking and speech latency mostly cleared up 12/06 same presentation, manic but with improved insight and judgment; patient wants to discharge on Monday when her 3 day notice is due. Patient has been improving and is now on long-acting injectable and agrees to continue with this treatment plan, very intensely wanted to know how she will get her next shot. Home [employer] Disclosure Act Specialist agrees it is preferable for patient to remain on the unit this week so as to monitor her progress and also better insure that she takes Abilify p.o. which is necessary to overlap 1st dose of Abilify Maintena. However, If patient continues on this trajectory, she is unlikely to meet criteria for involuntary commitment and her request for discharge will be honored. -patient has supportive family and supportive boyfriend; outpatient providers being set up including possible VNA atient reports she is doing much better today and in fact she is with significantly improved behavior and speech. Patient says again that she is accepting that she has bipolar disorder and feels much better overall especially after getting the long-acting injectable. Patient reported having a good visit with her father and that afterwards a good visit with her boyfriend; the two have fully reconciled and she no longer has any paranoid concerns at all. She also remembers having speech latency when she was 1st admitted and was relieved to know that that was a part of bipolar disorder. Patient asked and jingle writer printed out information regarding bipolar disorder for which she was grateful. Patient agreed to retract her 3 day notice; patient does not rise to the level of involuntary commitment and she is not in imminent risk for harm to self or others. Home [employer] Disclosure Act Specialist agrees to continue with discharge planning for this Monday. Discussed aftercare and patient's current primary residence is here [facility] with her parents which is where she will continue with outpatient treatment 12/08 continue tx. Plan: CV q15min Plan to discharge Saturday 12/09 Continue Abilify 30 mg Administer Abilify Maintena 400 mg IM -NO lithium ( documentation reports patient only has 1 kidney) Reason for continued inpatient stay Substantial Risk for: stable for discharge Time Spent With Patient Time: Total time managing care of this patient today ____ minutes.
[2022-12-08 18:00] VITALS: RESP 16
[2022-12-08] MEDS: traZODone HCL 50 MG TABLET PO (20:21)
[2022-12-08] MEDS: LORazepam 0.5 MG TABLET PO (22:14)
[2022-12-08] MEDS: hydrOXYzine HCL 50 MG TABLET PO (22:14)
[2022-12-09 06:00] VITALS: RESP 18
[2022-12-09] MEDS: ARIPiprazole 30 MG TABLET PO (08:18)
--- NOTE | 2022-12-09 09:57 | PM.PSYDC ---
DS: Providers Provider Date of Service: 12/09/22 Date of admission: 11/30/22 20:37 Date of discharge: 12/09/22 Primary care physician: Unknown Physician DS: Diagnosis Discharge Diagnosis (1) Bipolar 1 disorder: Status: Acute DS: Medications Discharge Medications Home Medications: Home Medications Medication Instructions Recorded Confirmed valacyclovir 500 mg tablet 500 mg PO DAILY 11/30/22 11/30/22 Previous Rx's Medication Instructions Recorded aripiprazole 400 mg intramuscular 400 mg IM QMONTH 30 days #1 ea 12/05/22 suspension,extended release (Abilify Maintena) aripiprazole 30 mg tablet 30 mg PO DAILY 11 days #11 tabs 12/07/22 trazodone 50 mg tablet 50 mg PO BEDTIME 30 days #30 tabs 12/07/22 Mental Status Exam Mental Status Exam Narrative: Pt is alert and oriented; behavior is cooperative, calm and with much improved organization; no longer intrusive; patient is not in distress; dressed in casual attire with adequate hygiene; mood is described as good and affect congruent, bright, calm; eye contact appropriate; Speech is normal rate, volume and prosody; no thought blocking/no speech latency; no psychomotor agitation; thought process goal oriented, logical and linear; she still may ask the same question twice but catches herself doing so now; Thought content is on accepting her diagnosis of bipolar disorder, treatment and post discharge plans; no delusional or paranoid thought content; no SI/HI. Does not appear to be internally preoccupied; no AVH Patients insight and judgment are significantly improved and getting close to baseline Data Data Completed and Pending Completed studies during hospitalization [Text1]: 11/30/22 Unknown Urine clean catch - Urine zavala top Urine Culture - Final Lactobacillus species DS: Summary Hospital Course Hospital Course: HPI:? Patient is a 32-year-old female with history of bipolar disorder,? several inpatient admissions over the past month who presents for disorganized, manic and paranoid behavior.? Patient is perseverative on saying that she does not feel safe with her boyfriend, that he is manipulative and love bombing.? Patient frequently repeats this phrase.? Geodesist? inquired? however patient remains very vague; she described love bombing saying that it is when he will give you stuff you want but then turns it against you, though no specifics.? About feeling unsafe, she said that he yelled at her and uses her history of mental illness, bipolar disorder as a way to criticize her.? Patient was disorganized in her thought process and had significant thought blocking making difficult for her to explain the recent course of events, however it was eventually determined that she? called the police to her apartment where she lives with her boyfriend? saying she was unsafe with him however? this did not seem to prompt a reaction from the police.? Patient said she then left her house and drove to [place] to knock on her ex-boyfriend's door but then did not feel safe there either.? She then drove some more but ran at a [employer] and w/out money had to anchor tack puller on the side of the road; police arrived and took her to the hospital.? patient reports she has been sleeping very little over the past week; not eating much.? She does have conversations with God but says that she is druze and refers to it as part of her samaritan.? She otherwise denies any AH. ? ED note mentioned she referenced seeing people that others could not see and to travel writer she said she can see things behind closed doors, however on further inquiry she could not explain.? 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 boyfriend's manipulation and love bombing....? She is vague on whether she has been taking her medication, saying her mother was giving her things that were not real medication.? Patient is amenable to restarting Abilify which she was on the past;? less enthusiastic about Risperdal Past Psychiatric History: ? Past psychiatric admissions. ? ?thereSeem to be several in-patient admissions over the past month.? Perhaps 1 this past May but then and admission to [facility] about a month ago, [facility] about 2 weeks ago and then [facility] about a week ago. Medical Evaluation Reviewed: Yes HOSPITAL COURSE On the unit, pt was admitted on a CV and placed on 5 minutes checks for safety. 12/05 Patient remains manic intrusive with peers; over the weekend she needed to be removed and excluded from the kitchen as she was being so intrusive, peers were getting agitated and threatening assault.? Patient accepted redirection.? Patient initially wanted to discharge today and resisted travel writer's explanation of her current manic behaviors; refuted that she was disorganized in her thinking despite it being pointed out that she has asked travel writer the same question 10 times in a row despite his repeated consistent answers; she dismisses that the past 3 admissions in the past month and a half are due to bipolar disorder.? However, patient had a moment of insight and later on in the day approached travel writer and said that she was having a hard time accepting that she actually does have bipolar disorder but she is learning to accept it and is willing to stay longer; patient retracted her 3 day notice.? She also was willing to increase Abilify to 30 mg daily and get the long-acting Maintena shot.? Patient also has been talking with her boyfriend and said they are reconciling which to travel writer indicates decrease in paranoid, delusional thinking. -thought blocking and speech latency mostly cleared up 12/06 same presentation, manic but with improved insight and judgment; patient wants to discharge on Monday when her 3 day notice is due.? Patient has been improving and is now on long-acting injectable and agrees to continue with this treatment plan, very intensely wanted to know how she will get her next shot.? Geodesist agrees it is preferable for patient to remain on the unit this week so as to monitor her progress and also better insure that she takes Abilify p.o. which is necessary to overlap 1st dose of Abilify Maintena.? However, If patient continues on this trajectory, she is unlikely to meet criteria for involuntary commitment and her request for discharge will be honored. -patient has supportive family and supportive boyfriend; outpatient providers being set up including possible [facility] atient reports she is doing much better today and in fact she is with significantly improved behavior and speech.? Patient says again that she is accepting that she has bipolar disorder and feels much better overall especially after getting the long-acting injectable.? Patient reported having a good visit with her father and that afterwards a good visit with her boyfriend;? the two have fully reconciled and she no longer has any paranoid concerns at all.? She also remembers having speech latency when she was 1st admitted and was relieved to know that that was a part of bipolar disorder.? Patient asked and travel writer printed out information regarding bipolar disorder for which she was grateful.? Patient agreed to retract her 3 day notice; patient does not rise to the level of involuntary commitment and she is not in imminent risk for harm to self or others.? Geodesist agrees to continue with discharge planning for this Monday. Discussed aftercare and patient's current primary residence is here [place] with her parents which is where she will continue with outpatient treatment. On the day of discharge, pt present as bright, non labile. No overt paranoid delusions. No SI/HI. Pt able to have meaningful conversation about need for continued psychiatric treatment. Pt is sleeping and eating well. She is taking medications as prescribed and has agreed to continue REEDER of abiilty mainteina. No aggression towards self or others. Status at Discharge Cognitive/behavioral status at discharge: Pt presents as bright, non labile. No overt psychosis or delusional content noted or reported. No SI/HI. No aggression towards self or others. Pt sleeping and eating well. Pt's family denied any safety concerns at time of discharged and agreed that pt appears in much improved condition. Functional status at discharge: independent ambulation Overall status at discharge: patient is progressing back to baseline Time Spent with Patient Time attestation: Total time managing care of this patient today ____ minutes. Discharge Plan Discharge Anticipated Discharge Date/Time: 12/09/22 09:51 Patient Disposition: Home, Self-Care Discharge Diagnosis: Bipolar Disorder type 1 Referrals: Tylor Preciado: [facility]: Psychiatry [Other] - 12/15/22 6:00 pm ( Initial Psychiatric Evaluation by Psychiatric medication provider Appointment is by tele-health appointment ) [facility] ([facility]): Therapy [Other] - 1 Week (Follow-up therapy appointment with outpatient therapist) [place] Medicaid [Other] - 1 Week (Information for [place] Medicaid You may call phone number provider to request aid in applying for insurance benefits. [place] Medicaid [phone]) [place] SSDI/SSI [Other] - 1 Week (Visit the SSA website at www.ssa.gov to apply online. Call or visit any Social Security office to schedule an appointment. You can locate the [facility] field office closest to you via this link, [email or web address] Contact [facility] toll-free at (TTY ).) [facility] [Provider Group] - 1 Week (walk in for primary/outpatient care ) Discharge Medications: New Abilify Maintena 400 mg suspension,extended rel recon 400 mg IM QMONTH 30 Days Qty: 1 0RF Rx Instructions: last dose received on 12/05/22; next dose due 12/30/22 Continued valacyclovir 500 mg tablet 500 mg PO DAILY trazodone 50 mg tablet 50 mg PO BEDTIME 30 Days Qty: 30 1RF Changed aripiprazole 30 mg tablet 30 mg PO DAILY 11 Days Qty: 11 0RF Discontinued melatonin 3 mg tablet 6 mg PO BEDTIME risperidone 2 mg tablet 2 mg PO BID lorazepam 0.5 mg tablet 0.5 mg PO TID hydroxyzine pamoate 25 mg capsule 25 mg PO BID PRN (Reason: anxiety) Discharge Orders: Discharge Order (Routine); Ordered 12/09/22 Ordered By: Jenn Lagunas Diet: Regular diet Activity on Discharge: As tolerated Stand Alone Forms: Patient Portal Discharge page, Community Support Care Plan Goals: 1. Maintain mood 2. No SI/HI 3. no psychosis 4. No aggression towards self or others Health Concerns: Follow up with PCP Plan of Treatment: 1. Take medications as prescribed 2. Go to nearest ED or call 911 in event of emergency Assessment: Pt with brighter, non labile mood. No SI/HI. No overt psychosis or delusions. Pt sleeping. Future oriented. Discharge Date/Time: 12/09/22 11:56
== END 2022-12-09 11:56 | disposition home or self-care (01) | DRG 753 ==
LOC: HO.ED 14:51 → HO.PM5 20:53
PROVIDERS: Emergency Medicine; Admitting Provider Social Worker; Emergency Provider Emergency Medicine; Visit Provider Psychiatry & Neurology Psychiatry
DX: F31.9 Bipolar disorder, unspecified (principal); Z20.822 Contact with and (suspected) exposure to COVID-19; Z79.899 Other long term (current) drug therapy
CPT/HCPCS: 36415; 80048; 80051; 80076; 80307; 81001; 81003; 81025; 85025; 87086; 87635; 99285; J0401; J1200; J2060

== ENCOUNTER → 2022-11-30 20:37 | Outpatient (BNV) | payer BC, MEDICAID, SELFPAY | PROVIDERS: Admitting Provider Social Worker; Emergency Provider Emergency Medicine; Visit Provider Psychiatry & Neurology Psychiatry | DX: F31.63 Bipolar disorder, current episode mixed, severe, without psychotic features (principal) | CPT/HCPCS: 90792; 99231; 99232; 99238 ==